=== PATIENT | female | born 1980 | race Caucasian/White ===

== ENCOUNTER 2016-05-14 22:32 | Emergency (ER) | payer OTHER ==
[~2016-05-14] VITALS: Ht 157.5 cm; Wt 88.6 kg
[~2016-05-14 22:32] MED LIST: METFORMIN HCL500 MG PO; PRENATAL VITAM1 EAC1 PO; TUDORZA PRESS400 MCG IH; VENTOLIN HFA18 GM IH
[2016-05-15] MEDS ORDERED: VALIUM5 MG PO (02:03)
[2016-05-15] MEDS ORDERED: INDOCIN25 MG PO (02:03)
[2016-05-15 02:18] VITALS: BP 128/110
== END 2016-05-15 02:19 | disposition home or self-care (01) ==
LOC: RME 22:32 → EME 22:32 → RME 05-15 02:19
DX: M54.9 Dorsalgia, unspecified (principal); G89.29 Other chronic pain; M62.838 Other muscle spasm
CPT/HCPCS: 81003; 84703; 99281; 99283; J1170; J1885

== ENCOUNTER 2016-12-11 22:46 | Outpatient (CLI) | payer OTHER ==
[~2016-12-11] VITALS: Ht 157.5 cm; Wt 92.5 kg
[~2016-12-11 22:46] MED LIST changes: +INDOCIN25 MG PO; +VALIUM5 MG PO
[2016-12-11 23:20] VITALS: BP 124/72
[2016-12-11] MEDS ORDERED: MORPHINE SULFAT15 M1 PO (23:54)
[2016-12-11] MEDS ORDERED: PERCOCET 10/1 TABLET PO (23:54)
[2016-12-11] MEDS ORDERED: ASPIRIN81 M2 PO (23:55)
[2016-12-11] MEDS ORDERED: VYVANSE50 MG PO (23:55)
[2016-12-12 01:43] LABS: BARBITUATES QUANT VALUE 0 NG/ML; BENZODIAZEPINES QUANT VALUE 0 NG/ML; BENZODIAZEPINES, URINE SCREEN Negative (200 ng/mL); MARIJUANA QUANT VALUE 0 NG/ML; PHENCYCLIDINE QUANT VALUE 0 NG/ML
== END 2016-12-12 03:29 | disposition home or self-care (01) ==
LOC: LDRP-OP → 2WEST 22:47 → LDRP-OP 06-03 11:46
PROVIDERS: Advanced Practice Midwife
DX: O20.9 Hemorrhage in early pregnancy, unspecified (principal); Z3A.19 19 weeks gestation of pregnancy; O99.332 Smoking (tobacco) complicating pregnancy, second trimester; F17.210 Nicotine dependence, cigarettes, uncomplicated
CPT/HCPCS: 76805; 80306 90; G0378

== ENCOUNTER 2017-04-30 06:52 | Inpatient (IN) | payer OTHER ==
[~2017-04-30] VITALS: Ht 157.5 cm; Wt 104.3 kg
[~2017-04-30 06:52] MED LIST changes: +ASPIRIN81 M2 PO; +BENADRYL25 MG PO; +MORPHINE SULFAT15 M1 PO; +PERCOCET 10/1 TABLET PO; +VYVANSE50 MG PO
[2017-04-30 07:17] VITALS: BP 129/76
[2017-04-30 07:35] LABS: BASOPHIL (%) 0.6 % (0-1); BASOPHIL COUNT 0.1 K/uL (0-0.1); EOSINOPHIL (%) 0.9 % (0-5); EOSINOPHIL COUNT 0.2 K/uL (0-0.3); HEMATOCRIT 39.9 % (36.0-46.0); HEMOGLOBIN 13.4 G/DL (11.9-15.5); IMMATURE GRANULOCYTE (%) 1.4 % (0.0-0.7); LYMPHOCYTE (%) 37.4 % (15-42); LYMPHOCYTE COUNT 6.8 K/uL (1.0-2.8); MCH 28.9 PG (29.0-34.0); MCHC 33.6 G/DL (30.0-36.0); MCV 86.2 FL (83-99); MONOCYTE (%) 5.9 % (3-12); MONOCYTE COUNT 1.1 K/uL (0-0.8); NEUTROPHIL (%) 53.8 % (45-76); NEUTROPHIL COUNT 9.8 K/uL (1.8-6.4); PLATELET COUNT 259 K/uL (156-360); RBC DIS.WIDTH-CV 14.4 % (11.8-14.6); RBC DIS.WIDTH-SD 44.7 % (39-53); RED BLOOD COUNT 4.63 M/uL (3.80-5.20); WHITE BLOOD COUNT 18.2 K/uL (4.1-10.2)
[2017-04-30 08:49] VITALS: BP 117/70
[2017-04-30 09:56] LABS: COCAINE NEGATIVE (150 ng/mL); PHENCYCLIDINE NEGATIVE (25 ng/mL); THC CANNABINOIDS NEGATIVE (50 ng/mL)
[2017-04-30 09:57] LABS: AMPHETAMINE PRESUMPTIVE POSITIVE (500 ng/mL); BARBITURATES NEGATIVE (200 ng/mL); BENZODIAZEPINES NEGATIVE (150 ng/mL); BUPRENORPHINE NEGATIVE (10 ng/mL); METHADONE NEGATIVE (200 ng/mL); METHAMPHETAMINE NEGATIVE (500 ng/mL); OPIATES (MORPHINE) PRESUMPTIVE POSITIVE (100 ng/mL); OXYCODONE PRESUMPTIVE POSITIVE (100 ng/mL); PROPOXYPHENE NEGATIVE (300 ng/mL); TRICYCLIC ANTIDEPRESSANTS NEGATIVE (300 ng/mL)
[2017-04-30 14:26] VITALS: BP 153/66
[2017-04-30 15:50] VITALS: BP 122/71
[2017-04-30 19:45] VITALS: BP 116/67
[2017-04-30 22:25] LABS: BASOPHIL (%) 0.4 % (0-1); BASOPHIL COUNT 0.1 K/uL (0-0.1); EOSINOPHIL COUNT 0.2 K/uL (0-0.3); HEMATOCRIT 34.8 % (36.0-46.0); HEMOGLOBIN 11.6 G/DL (11.9-15.5); IMMATURE GRANULOCYTE (%) 1.1 % (0.0-0.7); LYMPHOCYTE (%) 30.5 % (15-42); LYMPHOCYTE COUNT 5.2 K/uL (1.0-2.8); MCH 29.6 PG (29.0-34.0); MCHC 33.3 G/DL (30.0-36.0); MCV 88.8 FL (83-99); MONOCYTE (%) 6.4 % (3-12); MONOCYTE COUNT 1.1 K/uL (0-0.8); NEUTROPHIL (%) 60.6 % (45-76); NEUTROPHIL COUNT 10.3 K/uL (1.8-6.4); RBC DIS.WIDTH-CV 14.6 % (11.8-14.6); RBC DIS.WIDTH-SD 46.4 % (39-53); RED BLOOD COUNT 3.92 M/uL (3.80-5.20)
[2017-04-30 22:29] LABS: PLATELET CLUMPS PRESENT - PLATELET COUNT APPEARS ADQ.; PLATELET COUNT UNABLE TO REPORT K/uL (156-360)
[2017-04-30 22:31] VITALS: BP 130/72
[2017-05-01 03:31] VITALS: BP 133/78
[2017-05-01 06:23] VITALS: BP 114/55
[2017-05-01 07:02] VITALS: BP 129/81
[2017-05-01 07:33] LABS: BASOPHIL (%) 0.3 % (0-1); BASOPHIL COUNT 0.1 K/uL (0-0.1); EOSINOPHIL (%) 1.6 % (0-5); EOSINOPHIL COUNT 0.3 K/uL (0-0.3); HEMATOCRIT 32.3 % (36.0-46.0); HEMOGLOBIN 10.4 G/DL (11.9-15.5); IMMATURE GRANULOCYTE (%) 0.6 % (0.0-0.7); LYMPHOCYTE (%) 23.3 % (15-42); LYMPHOCYTE COUNT 3.7 K/uL (1.0-2.8); MCH 28.3 PG (29.0-34.0); MCHC 32.2 G/DL (30.0-36.0); MONOCYTE (%) 5.8 % (3-12); MONOCYTE COUNT 0.9 K/uL (0-0.8); NEUTROPHIL (%) 68.4 % (45-76); RBC DIS.WIDTH-CV 14.3 % (11.8-14.6); RBC DIS.WIDTH-SD 45.6 % (39-53); RED BLOOD COUNT 3.67 M/uL (3.80-5.20)
[2017-05-01 08:55] LABS: PLATELET COUNT 169 K/uL (156-360)
[2017-05-01 10:52] VITALS: BP 142/86
[2017-05-01 14:31] VITALS: BP 131/66
[2017-05-01 22:56] VITALS: BP 132/60
[2017-05-02 07:00] VITALS: BP 154/82
[2017-05-02 15:30] VITALS: BP 142/61
[2017-05-04] MEDS ORDERED: PERCOCET 10/1 TABLET PO ×2 (14:29→14:37)
[2017-05-04] MEDS ORDERED: MOTRIN800 MG PO (14:29)
== END 2017-05-04 21:05 | disposition home or self-care (01) | DRG 765 ==
LOC: 2WEST 06:52 → 2SOUTH 10:54 → 2WEST 05-04 21:05
PROVIDERS: Obstetrics & Gynecology
PROC: 10D00Z1 Extraction of Products of Conception, Low, Open Approach (ICD-10-PCS; principal; 2017-04-30)
DX: O32.1XX0 Maternal care for breech presentation, not applicable or unspecified (principal); O69.81X0 Labor and delivery complicated by cord around neck, without compression, not applicable or unspecified; O99.02 Anemia complicating childbirth; D62 Acute posthemorrhagic anemia; O99.824 Streptococcus B carrier state complicating childbirth; O24.420 Gestational diabetes mellitus in childbirth, diet controlled; O99.334 Smoking (tobacco) complicating childbirth; F17.200 Nicotine dependence, unspecified, uncomplicated; O99.52 Diseases of the respiratory system complicating childbirth; J45.909 Unspecified asthma, uncomplicated; G89.29 Other chronic pain; M54.9 Dorsalgia, unspecified; O99.214 Obesity complicating childbirth; E66.9 Obesity, unspecified; Z88.1 Allergy status to other antibiotic agents; Z79.82 Long term (current) use of aspirin; Z85.41 Personal history of malignant neoplasm of cervix uteri; Z79.891 Long term (current) use of opiate analgesic; Z3A.39 39 weeks gestation of pregnancy; Z37.0 Single live birth
CPT/HCPCS: 84999; 85025; 85025 91; 86850; 86900; 86901; J0690; J1170; J1885; J2274; J2405; J7040; J7120